=== PATIENT | male | born 1940 | race Caucasian/White ===

== ENCOUNTER 2021-04-18 09:28 | Inpatient (IN) ==
[2021-04-18] MEDS ORDERED: 0.9 % SODIUM CHLORIDE 1,000 ML IV ONE ×2 (09:52→13:49)
--- NOTE | 2021-04-18 09:56 | Emergency Department Note ---
HPI General Chief complaint: Weakness Stated complaint: Weakness Time Seen by Provider: 04/18/21 09:43 Source: family Mode of arrival: wheelchair Limitations: physical limitation History of Present Illness HPI Narrative: Narrative: 80 yo M w/ h/o DM2, CHF, HTN, colostomy for colon CA (3 y ago, apparently in remission) p/w generalized weakness. Per his here w/ him, he has had increased fatigue chronically, spending most of the day sleeping. He has seen his PCP about this several times w/o any clear etiology discovered. Over the past week however he has become increasingly weak to the point that he cannot ambulate on his own and he has been taking much less PO intake, on a few tablespoons of food over the past few days. He has had some nausea w/o diarrhea. His ostomy output appears unchanged and his reports no issues w/ urination. He o/w has no F/C, cough, SOB, CP, abd pain, or other Sx. Review of Systems ROS ROS Narrative: Narrative: Limitations: ROS unobtainable due to patients medical condition [facility] Narrative Patient History Narrative: Narrative: Medical/Surgical/Family History All Active Problems (Updated 04/18/21 @ 15:46 by Piter Carrasco MD) Acute renal failure (Acute) Dehydration (Acute) Metabolic acidosis (Acute) Acute renal failure with acute tubular necrosis superimposed on stage 3a chronic kidney disease (Acute) Social History Smoking Status: Never smoker Exam Narrative Narrative: Narrative: General Limitations: physical limitation General appearance: Present alert, in no apparent distress and other Head Head: Present atraumatic and normocephalic ENT ENT: Present normal oropharynx and mucous membranes dry Chest Chest: Present normal inspection and symmetric chest wall rise Respiratory Respiratory: Present normal lung sounds bilaterally; Absent accessory muscle use or decreased breath sounds Cardiovascular Cardiovascular: Present regular rate, normal rhythm, +S1, +S2 and other (2+ B/L radial pulses); Absent systolic murmur or diastolic murmur Adbominal Abdominal: Present soft, normal bowel sounds and other (ostomy in place, normal output in bag); Absent distention or tenderness Extremities Extremities: Absent pedal edema Neurological Neurological: Present alert and oriented X3 Psychiatric Psychiatric: Present normal affect Skin Skin: Present warm (WNL) and dry Course Vital Signs Vital signs: Vital Signs Temperature 97.4 F 04/18/21 09:29 Pulse Rate 76 04/18/21 09:29 Respiratory Rate 16 04/18/21 09:29 Blood Pressure 144/71 04/18/21 09:29 Pulse Oximetry (%) 99 04/18/21 09:29 Temperature 97.4 F 04/18/21 09:34 Pulse Rate 78 04/18/21 15:46 Respiratory Rate 16 04/18/21 13:07 Blood Pressure 129/62 04/18/21 15:46 Pulse Oximetry (%) 97 04/18/21 15:46 MDM MDM Narrative Medical decision making narrative: Narrative: 80 yo M w/ h/o DM2, CHF, HTN, colostomy for colon CA (3 y ago, apparently in remission) p/w generalized weakness. DDX - Infectious process, dehydration, metabolic/electrolyte d/o, neoplastic process, anemia, endocrine d/o, medication/toxin effect Pt presents clinically stable, w/ no threat to ABCs and no evidence of CVA on exam. CXR and UA show no evidence of infection and clinically conditions such as meningitis/encephalitis are unlikely. He is clinically dehydrated and while proceeding w/ W/U I started him on IVF. His CBC showed no anemia. CMP showed normal electrolytes (including K+), no hypoglycemia, however he had renal ravi lure w/ BUN 200 and Cr 5. This was the likely source of his weakness. I did not see evidence of hypothyroidism. Neoplastic process was possible but could be worked up further outside of the ED. I d/w him and his regarding his renal failure. I also d/w Sisi Daigle, pts POA who is coming in from [facility]. Dr Suarez - unclear prognosis. May be ESRD, but may be able to reverse some of the damage. He reviewed pts records at [facility] and found that he had been at [facility] for a similar issue w/ BUN 97 and Cr [address] referred pt [address] Suarez himself. But he has not yet seen the pt. At this point he feels that IVF should improve pts renal status. Emergency dialysis is not indicated at this point. Pt could be admitted here for [id number] 100/hr and would be availabe for consult if the hospitalist wishes. Pt was accepted by the hospitalist. Lab Data Result diagrams: 04/18/21 10:03 04/18/21 10:03 Labs: Lab Results 04/18/21 04/18/21 04/18/21 Range/Units 10:03 10:03 10:50 WBC 7.2 (4.5-11.0) K/mcL RBC 4.39 L (4.63-6.08) M/mcL Hgb 13.2 L (13.7-17.5) g/dL Hct 39.8 L (40.1-51.0) % MCV 90.7 (80.0-100.0) fL MCH 30.1 (26.0-34.0) pg MCHC 33.2 (31.0-36.0) g/dL RDW 14.4 (11.5-14.5) % Plt Count 121 L (140-440) K/mcL MPV 11.6 H (7.4-10.4) fL Neut % (Auto) 78.5 H (38.0-78.0) % Lymph % (Auto) 12.6 L (15.5-49.0) % [place] % (Auto) 6.6 (1.0-12.0) % Eos % (Auto) 1.7 (0.0-7.0) % Baso % (Auto) 0.6 (0.0-2.0) % Lymph # (Auto) 0.90 L (1.50-4.80) K/mcL [place] # (Auto) 0.47 (0.10-0.90) K/mcL Eos # (Auto) 0.12 (0.00-0.70) K/mcL Baso # (Auto) 0.04 (0.00-0.30) K/mcL Absolute Neutrophils 5.64 (1.80-8.00) K/mcL VBG Lactic Acid 0.9 (0.5-2.0) mmol/L Sodium 136 (133-145) mmol/L Potassium 5.1 (3.3-5.1) mmol/L Chloride 102 (96-108) mmol/L Carbon Dioxide 15 L (22-30) mmol/L Anion Gap 19.0 H (8.0-16.0) BUN 206 H* (8-23) mg/dL Creatinine 5.2 H* (0.7-1.2) mg/dL GFR Calculation 10 Glucose 168 H (70-105) mg/dL Calcium 9.1 (8.6-10.4) mg/dL Total Bilirubin 0.4 (0.1-1.0) mg/dL AST 12 (<40) U/L ALT 9 (<40) U/L Alkaline Phosphatase 89 (39-117) U/L Total Protein 8.0 (5.9-8.4) gm/dL Albumin 3.9 (3.2-5.2) gm/dL Globulin 4.1 H (2.2-3.7) gm/dL Albumin/Globulin Ratio 1.0 (1.0-2.3) TSH 2.55 (0.27-5.01) uIU/mL Thyroxine (T4) 3.8 L (5.0-12.0) ug/dl Urine Color Yellow Urine Appearance Clear (Clear) Urine pH 5.0 (5.0-9.0) Ur Specific [place] 1.015 (1.000-1.035) Urine Protein Negative (Negative) mg/dL Urine Glucose (UA) Negative (Negative) mg/dL Urine Ketones Negative (Negative) mg/dL Urine Occult Blood Trace-lysed A (Negative) perla/mcL Urine Nitrate Negative (Negative) Urine Bilirubin Negative (Negative) mg/dL Urine Urobilinogen Normal mg/dL Ur Leukocyte Esterase Negative (Negative) /uL Urine RBC < 1 (0-3) /hpf Urine WBC 1 (0-4) /hpf Ur Squamous Epith Cells < 1 (0-4) /hpf Urine Bacteria None (0) /hpf Hyaline Casts 13 H (0-2) /lph Urine Mucus Few A (None) /hpf Ur Culture Indicated? No ED POC Tests ED POC Tests: ELVIS - Influenza A Negative ELVIS - Influenza B Negative ELVIS - SARS Antigen Negative EKG Data EKG #1: EKG attestation: Yes I reviewed and interpreted this EKG. and Yes There are no EKG findings of acute coronary syndrome EKG results narrative: Sinus rate of 69 IN 244, QRS 160, QT 435, QTc 466 No STEMI RAD No previous for comparison Discharge Plan Patient/Caregiver Discharge Instructions Pt seen by [facility]/PA only: No Clinical Impression: Acute renal failure, Dehydration Patient Disposition: Xfer As Inpt ([facility]) Condition: Fair Follow up with: Devon Lemos DO [Primary Care Provider] -
--- NOTE | 2021-04-18 10:13 | XRay Report ---
INDICATION: chest pain TECHNIQUE: AP portable semiupright chest x-ray COMPARISON: None FINDINGS: Lungs:Lungs are negative. No focal pulmonary parenchymal infiltrate or mass Heart, vascular:No significant cardiomegaly. Pulmonary vascularity is normal. No pulmonary edema or pulmonary congestion Mediastinum, claritza:No mediastinal widening. No hilar mass Pleura:No pleural fluid. No pleural-based mass or calcification Skeletal:Negative. IMPRESSION: Negative AP chest x-ray Interpreted and Authenticated by: Trent Otto 04/18/21
[2021-04-18 11:17] LABS: Basophils # (Auto) 0.04 K/mcL (0.00-0.30); Basophils % (Auto) 0.6 % (0.0-2.0); Eosinophils # (Auto) 0.12 K/mcL (0.00-0.70); Eosinophils % (Auto) 1.7 % (0.0-7.0); Hematocrit 39.8 % (40.1-51.0); Hemoglobin 13.2 g/dL (13.7-17.5); Lymphocytes % (Auto) 12.6 % (15.5-49.0); Mean Cell Volume 90.7 fL (80.0-100.0); Mean Corpuscular HGB Conc 33.2 g/dL (31.0-36.0); Mean Platelet Volume 11.6 fL (7.4-10.4); Monocytes # (Auto) 0.47 K/mcL (0.10-0.90); Monocytes % (Auto) 6.6 % (1.0-12.0); Neutrophils % (Auto) 78.5 % (38.0-78.0); Platelet Count 121 K/mcL (140-440); RBC 4.39 M/mcL (4.63-6.08); Red Cell Distribution Width 14.4 % (11.5-14.5); WBC 7.2 K/mcL (4.5-11.0)
[2021-04-18 11:25] LABS: T4 (Thyroxine) 3.8 ug/dl (5.0-12.0); Thyroid Stimulating Hormone 2.55 uIU/mL (0.27-5.01)
[2021-04-18 11:39] LABS: ALT/SGPT 9 U/L (<40); AST/SGOT 12 U/L (<40); Albumin 3.9 gm/dL (3.2-5.2); Alkaline Phosphatase 89 U/L (39-117); Bilirubin,Total 0.4 mg/dL (0.1-1.0); Blood Urea Nitrogen 206 mg/dL (8-23); Calcium 9.1 mg/dL (8.6-10.4); Carbon Dioxide 15 mmol/L (22-30); Chloride 102 mmol/L (96-108); Globulin 4.1 gm/dL (2.2-3.7); Glomerular Filtration Rate 10; Glucose 168 mg/dL (70-105)
[2021-04-18 11:57] LABS: Appearance,Urine Clear (Clear); Bilirubin,Urine Negative (Negative); Color,Urine Yellow; Culture Indicated,Urine No; Glucose,Urine (UA) Negative (Negative); Ketones,Urine Negative (Negative); Leukocyte Esterase,Urine Negative /uL (Negative); Mucus,Urine FEW /hpf; Nitrate,Urine Negative (Negative); Protein,Urine Negative (Negative); Specific Gravity,Urine 1.015 (1.000-1.035); Urine Blood Trace-lysed ery/mcL (Negative); Urine Hyaline Cast 13 /lph (0-2); Urine RBC < 1 /hpf (0-3); Urine Squamous Epithelial Cell < 1 /hpf (0-4); Urine WBC 1 /hpf (0-4); Urobilinogen,Urine Normal
[2021-04-18] MEDS ORDERED: SODIUM BICARBONATE VIAL 50 MEQ in DEXTROSE 5% IN WATER 1,000 ML IV SCH (14:15)
--- NOTE | 2021-04-18 14:53 | Nephrology Consult Note ---
HPI Data of Consult Patient: new to practice Consult date: 04/18/21 Requesting physician: Piter Carrasco Primary Care Provider: Devon Lemos DO Consult Narrative Patient Information: Note initiated : 04/18/21 at 2:50 pm Patient: Will Pate 80 y/o M admitted on for weakness. Patient is hard of hearing. His at bedside helped with history. Will Pate is an 80-year-old male with hypertension, diabetes mellitus type 2, chronic kidney disease stage 3a, history of colon cancer s/p resection with colostomy presented to [facility] ED for weakness on 04/18/21. His work up is significant for acute kidney injury. He was recently seen at [facility] ED on 03/20/21 and 03/21/21 for acute kidney injury which responded to IV fluids. He followed up with his PCP. Weakness developed gradually. He declines difficulty of urination. Baseline serum creatinine: 1.0-1.5 (eGFR 43-71) in 2020, 2.0 on 03/20/21, 1.3 on 03/21/21. Nephrology consultation was requested for acute kidney injury. Chief complaint: Weakness Reason for consult: Acute kidney injury cc:: CC: Constitutional Constitutional: Present anorexia and weakness EENT Eyes: Absent blurry vision Nose, mouth and throat: Absent nasal congestion or sore throat Cardiovascular Cardiovascular: Absent chest pain or palpatations Respiratory Respiratory: Absent dyspnea or wheezing Gastrointestinal Gastrointestinal: Absent abdominal pain or nausea Genitourinary Additional comments: No hematuria, dysuria Integumentary Integumentary: Absent rash or wounds Neurological Neurological: Present weakness; Absent confusion Psychiatric Psychiatric: Absent anxiety or panic attacks Hematologic/Lymphatic Hematologic/Lymphatic: Absent easy bleeding Allergic/Immunologic Allergic/Immunologic: Absent tongue swelling or uticaria PFSH PFSH All Active Problems (Updated 04/18/21 @ 14:51 by Deb Suarez MD) Metabolic acidosis (Acute) Acute renal failure with acute tubular necrosis superimposed on stage 3a chronic kidney disease (Acute) Physical Examination Vital Signs Vital signs: Temp Pulse Resp BP Pulse Ox 97.4 F 80 16 125/56 97 04/18/21 09:34 04/18/21 14:16 04/18/21 13:07 04/18/21 14:16 04/18/21 14:16 General Appearance General appearance: well-developed, well-nourished and fatigue EENT EENT: mucous membranes dry Neck Neck: no JVD Respiratory Respiratory: clear Cardiovascular Cardiology: regular rate and regular rhythm Gastrointestinal Gastrointestinal: no tenderness and distended Integumentary Integumentary: warm and dry Neurologic Neurologic: alert and oriented x3 Musculoskeletal Musculoskeletal: no deformities Psychiatric Psychiatric: mood/affect appropriate and cooperative Results Lab Results Result Diagrams: 04/18/21 10:03 04/18/21 10:03 Lab results: Most recent lab results Calcium 9.1 mg/dL (8.6-10.4) 04/18/21 10:03 A/P Assessment and plan (1) Acute renal failure with acute tubular necrosis superimposed on stage 3a chronic kidney disease: Assessment and plan: Will Pate is an 80-year-old male with hypertension, diabetes mellitus type 2, chronic kidney disease stage 3a, history of colon cancer s/p resection with colostomy presented to [facility] ED for weakness on 04/18/21. His work up is significant for acute kidney injury. He was recently seen at [facility] ED on 03/20/21 and 03/21/21 for acute kidney injury which responded to IV fluids. He was recommended to see a kidney specialist. Baseline serum creatinine: 1.0-1.5 (eGFR 43-71) in 2020, 2.0 on 03/20/21, 1.3 on 03/21/21. Nephrology consultation was requested for acute kidney injury. Acute kidney injury, likely acute tubular necrosis associated with dehydration on chronic kidney disease stage 3a with initial metabolic acidosis, present on arrival. There is no recent history of IV contrast administration or NSAID use. Intravascular volume depletion likely with history and colostomy and being treated with adequate IV fluid resuscitation. The patient has been on Lisinopril, Metformin, Furosemide and Spironolactone. Metformin intoxication is considered. Diuretics are high risk with colostomy and should be avoided. Previous work up: Urinalysis on 03/21/21: Yellow, Clear, pH 6.0, SG 1.015, protein 30, blood 0.03, leukocyte esterase negative. Urine random microalbumin/creatinine on 06/19/18: 78.5 mg/g creatinine. CT Abdomen and Pelvis with contrast on 11/28/2017: Benign appearing cortical and partially exophytic cysts in the kidneys. Urinary bladder is decompressed. Work up: Urinalysis on 04/18/21: Yellow, Clear, pH 5.0, SG 1.015, protein negative, blood trace-lysed, leukocyte esterase negative, urine WBC. Progress: Serum creatinine increased from 1.0-1.5 at baseline to 5.2 in the past one month. Baseline serum creatinine: 1.0-1.5 (eGFR 43-71) in 2020, 2.0 on 03/20/21, 1.3 on 03/21/21. Urine output: Small amount of yellow clear urine in the urinal. Metabolic acidosis. Metformin intoxication is considered. No fluid overload. No uremic symptoms. Recommendations/Plan: Continue Sodium Bicarbonate 150 mEq in 1L D5W at 100 ml/hour for metabolic acidosis. Anticipate hypokalemia with correction of metabolic acidosis. No urgent acute hemodialysis need. Work up with renal US, serum free kappa/lambda light chain ratio, HBsAg, anti- HCV Ab, C3, C4, ANCA screen, anti-GBM Ab ordered. Avoid NSAIDs, nephrotoxic medications and IV contrast. Monitor BMP and urine output. Status: Acute (2) Metabolic acidosis: Status: Acute Time Spent With Patient Time: Total time spent is greater than 50% in coordination of care (as documented) at patient's floor/unit and/or counseling patient:
[2021-04-18] MEDS ORDERED: SODIUM BICARBONATE 50 MEQ/50 ML VIAL ONE ×2 (15:08→15:38)
[2021-04-18] MEDS: SODIUM BICARBONATE VIAL 150 MEQ in DEXTROSE 5% IN WATER 850 ML IV SCH (15:36)
[2021-04-18 16:58] LABS: Complement C3 154.3 mg/dL (90.0-180.0)
--- NOTE | 2021-04-18 17:11 | Internal Med History&Physical ---
HPI History of Present Illness Patient information: Note initiated : 04/18/21 at 4:58 pm Service Date, if different from initiated Date: [] Patient: Will Pate 80 y/o M admitted on for Weakness. Chief Complaint: [] Chief complaint: generalized weakness History of present illness: Mr. Pate is a 80 year old male with a history of hypertension, type 2 diabetes mellitus, chronic kidney disease stage III a, congestive heart failure, colon cancer about 3 years ago status post resection and colostomy placement presented to the emergency department for generalized weakness, fatigue, decreased appetite. This is been progressively worsening for several weeks, the patient was seen at [facility] emergency department in February 2021 and found to have acute kidney injury that responded to IV fluids. Patient was seen by his primary care provider for the aforementioned complaints, no etiology has been found for the patient's symptoms. In the emergency department at [facility] the patient was found to have an acute kidney injury and anion gap metabolic acidosis, BUN was elevated at 206. Additionally, the patient had a mild normocytic anemia, thrombocytopenia with platelets 121, increased globulin of 4.1. TSH was normal. Urinalysis was fairly normal, no evidence of hematuria or pyuria. Chest AP x-ray was interpreted as negative by radiology. The patient was admitted for acute kidney injury work-up and management. Nephrology was consulted in the emergency department for acute kidney injury. Review of systems Constitutional: Positive for fatigue, decreased appetite, generalized weakness. Eyes: no vision changes or pain Cardiovascular: no chest pain, no palpitations Respiratory: no cough or dyspnea Gastrointestinal: no abdominal pain, no nausea, vomiting, or diarrhea Genitourinary: no dysuria or difficulty voiding Musculoskeletal: no arthralgia or myalgia Integumentary: no skin lesion or wound Neurological: no focal weakness or numbness Psychiatric: no anxiety or depression Physical exam Head: Atraumatic, normal inspection. Eyes: normal appearance, no scleral icterus. Neck: full ROM Respiratory: no respiratory distress. Cardiovascular: normal rate and rhythm, S1, S2. GI/Abdominal: soft, nontender, no guarding. Extremities: full range of motion, nontender. Neurological: CN II-XII intact, intact motor, intact sensation. Psychiatric: normal mood. Skin: warm, normal color PFSH PFSH All Active Problems (Updated 04/18/21 @ 15:46 by Piter Carrasco MD) Acute renal failure (Acute) Dehydration (Acute) Metabolic acidosis (Acute) Acute renal failure with acute tubular necrosis superimposed on stage 3a chronic kidney disease (Acute) EXAM Constitutional Vitals: Temp Pulse Resp BP Pulse Ox 97.4 F 86 16 121/49 97 04/18/21 09:34 04/18/21 16:31 04/18/21 13:07 04/18/21 16:31 04/18/21 16:31 DATA Data Completed and Pending Labs: Labs from last 24 hours 04/18/21 04/18/21 04/18/21 15:37 15:37 15:37 WBC RBC Hgb Hct MCV MCH MCHC RDW Plt Count MPV Neut % (Auto) Lymph % (Auto) [place] % (Auto) Eos % (Auto) Baso % (Auto) Lymph # (Auto) [place] # (Auto) Eos # (Auto) Baso # (Auto) Absolute Neutrophils VBG Lactic Acid Sodium Potassium Chloride Carbon Dioxide Anion Gap BUN Creatinine GFR Calculation Glucose Calcium Total Bilirubin AST ALT Alkaline Phosphatase Total Protein Albumin Globulin Albumin/Globulin Ratio TSH Thyroxine (T4) Urine Color Urine Appearance Urine pH Ur Specific Gordon Urine Protein Urine Glucose (UA) Urine Ketones Urine Occult Blood Urine Nitrate Urine Bilirubin Urine Urobilinogen Ur Leukocyte Esterase Urine RBC Urine WBC Ur Squamous Epith Cells Urine Bacteria Hyaline Casts Urine Mucus Ur Culture Indicated? ANCA Screen Pending Anti-Proteinase 3 Pending Myeloperoxidase Ab Pending Glomerular Base Mem IgG Pending Complement C3 154.3 Complement C4 36.6 Free Hailey LC, Quant Pending Free Lambda LC, Quant Pending Free [place]/Lambda Ratio Pending Hep Bs Antigen Pending Hepatitis C Antibody Pending HCV RNA Quant (PCR) Pending HCV RNA PCR log IUs/ml Pending 04/18/21 04/18/21 04/18/21 10:50 10:03 10:03 WBC 7.2 RBC 4.39 L Hgb 13.2 L Hct 39.8 L MCV 90.7 MCH 30.1 MCHC 33.2 RDW 14.4 Plt Count 121 L MPV 11.6 H Neut % (Auto) 78.5 H Lymph % (Auto) 12.6 L [place] % (Auto) 6.6 Eos % (Auto) 1.7 Baso % (Auto) 0.6 Lymph # (Auto) 0.90 L [place] # (Auto) 0.47 Eos # (Auto) 0.12 Baso # (Auto) 0.04 Absolute Neutrophils 5.64 VBG Lactic Acid 0.9 Sodium 136 Potassium 5.1 Chloride 102 Carbon Dioxide 15 L Anion Gap 19.0 H BUN 206 H* Creatinine 5.2 H* GFR Calculation 10 Glucose 168 H Calcium 9.1 Total Bilirubin 0.4 AST 12 ALT 9 Alkaline Phosphatase 89 Total Protein 8.0 Albumin 3.9 Globulin 4.1 H Albumin/Globulin Ratio 1.0 TSH 2.55 Thyroxine (T4) 3.8 L Urine Color Yellow Urine Appearance Clear Urine pH 5.0 Ur Specific [place] 1.015 Urine Protein Negative Urine Glucose (UA) Negative Urine Ketones Negative Urine Occult Blood Trace-lysed A Urine Nitrate Negative Urine Bilirubin Negative Urine Urobilinogen Normal Ur Leukocyte Esterase Negative Urine RBC < 1 Urine WBC 1 Ur Squamous Epith Cells < 1 Urine Bacteria None Hyaline Casts 13 H Urine Mucus Few A Ur Culture Indicated? No ANCA Screen Anti-Proteinase 3 Myeloperoxidase Ab Glomerular Base Mem IgG Complement C3 Complement C4 Free [place] LC, Quant Free Lambda LC, Quant Free [place]/Lambda Ratio Hep Bs Antigen Hepatitis C Antibody HCV RNA Quant (PCR) HCV RNA PCR log IUs/ml A/P Narrative A/P Narrative: Assessment: 80 year old male with a history of hypertension, type 2 diabetes mellitus, chronic kidney disease stage IIIa, colon cancer about 3 years ago status post resection and colostomy placement presented to the emergency department for generalized weakness, fatigue, decreased appetite and found to have acute on chronic kidney disease injury. #Acute on chronic kidney disease stage IIIa injury #Anion gap metabolic acidosis #Generalized weakness and fatigue #Type 2 diabetes mellitus #Hypertension #Mild normocytic anemia #Thrombocytopenia #Probable BPH #History of colon cancer status post resection -Reportedly in remission #Status post colostomy for colon cancer Plan -IV fluid with sodium bicarbonate. -Monitor renal function, urine output. -ARIAN work-up to include renal ultrasound, serum free light chains, hepatitis B and C screening, C3, C 4, ANCA screen, anti-GBM antibody. -Nephrology consulted. -Home medication reconciliation. -SSI-medium for now -Renal diabetic diet. -PT consult. -Bladder scan Qshift. -DVT prophylaxis: Heparin SQ -CODE STATUS: DNR/DNI -Disposition: TBD Time Spent With Patient Time: Total time spent is greater than 50% in coordination of care (as documented) at patient's floor/unit and/or counseling patient:
--- NOTE | 2021-04-18 18:13 | Ultrasound Report ---
INDICATION: acute kidney injury TECHNIQUE: Grayscale and color flow Doppler spectral imaging. COMPARISON: None. FINDINGS: Right kidney: Right kidney [id number] x 6.2 x 6.3 cm. There is no hydronephrosis. No solid right renal mass. Renal cortex is echogenic consistent with medical renal disease. No detectable calculi. There is a 2.0 cm right upper pole cyst. There is trace right perinephric fluid Left kidney: Left kidney .2 x 5.4 x 5.6 cm. There is no hydronephrosis. No solid left renal mass. Renal cortex is echogenic consistent with medical renal disease. No detectable calculi. There are 2 left renal cysts. Largest cyst is upper pole and measures 1.9 cm Bladder: Prevoid bladder [id number] mL. Patient was unable to void. No bladder calculi. No detectable mass. Bilateral ureteral jets visualized. IMPRESSION: 1. Echogenic renal cortex bilaterally. Findings consistent with medical renal disease 2. No hydronephrosis Interpreted and Authenticated by: Trent Otto 04/18/21
[2021-04-18] MEDS ORDERED: DEXTROSE 50% 50 ML VIAL IV PRN (18:33)
[2021-04-18] MEDS ORDERED: DEXTROSE 31 GM ORAL.SUSP PO PRN (18:33)
[2021-04-18] MEDS ORDERED: ACETAMINOPHEN 325 MG TABLET PO PRN (18:33)
[2021-04-18] MEDS ORDERED: ONDANSETRON 4 MG/2 ML VIAL IV PRN (18:33)
[2021-04-18] MEDS: INSULIN LISPRO 1 UNIT/0.01 ML UNIT SQ SCH ×2 (21:07→22:53)
[2021-04-18] MEDS: SENNOSIDES 1 TABLET PO SCH (23:03)
[2021-04-18] MEDS: HEPARIN 5,000 UNIT/ML VIAL SQ SCH (23:04)
[2021-04-18] MEDS: INSULIN GLARGINE, HUMAN 1 UNIT/0.01 ML SQ SCH (23:04)
[2021-04-18] MEDS: 0.9 % SODIUM CHLORIDE 10 ML SYRINGE IV SCH (23:05)
[2021-04-18] MEDS ORDERED: ALPRAZolam 0.5 MG TABLET ONE (23:06)
[2021-04-18] MEDS ORDERED: INSULIN GLARGINE, HUMAN 1 UNIT/0.01 ML SQ ONE (23:07)
[2021-04-19] MEDS ORDERED: SODIUM BICARBONATE 50 MEQ/50 ML VIAL ONE (03:44)
[2021-04-19] MEDS: SODIUM BICARBONATE VIAL 150 MEQ in DEXTROSE 5% IN WATER 850 ML IV SCH (03:48)
[2021-04-19] MEDS: 0.9 % SODIUM CHLORIDE 10 ML SYRINGE IV SCH ×3 (04:55→20:37)
[2021-04-19 06:53] LABS: Basophils # (Auto) 0.03 K/mcL (0.00-0.30); Basophils % (Auto) 0.4 % (0.0-2.0); Eosinophils # (Auto) 0.21 K/mcL (0.00-0.70); Eosinophils % (Auto) 2.8 % (0.0-7.0); Hematocrit 34.4 % (40.1-51.0); Hemoglobin 11.7 g/dL (13.7-17.5); Lymphocytes # (Auto) 1.42 K/mcL (1.50-4.80); Lymphocytes % (Auto) 18.8 % (15.5-49.0); Mean Cell Volume 88.4 fL (80.0-100.0); Monocytes % (Auto) 7.9 % (1.0-12.0); Neutrophils % (Auto) 70.1 % (38.0-78.0); Platelet Count 113 K/mcL (140-440); RBC 3.89 M/mcL (4.63-6.08); Red Cell Distribution Width 14.2 % (11.5-14.5); WBC 7.6 K/mcL (4.5-11.0)
[2021-04-19 07:24] LABS: ALT/SGPT 8 U/L (<40); AST/SGOT 14 U/L (<40); Albumin 3.2 gm/dL (3.2-5.2); Albumin/Globulin Ratio 0.9 (1.0-2.3); Alkaline Phosphatase 74 U/L (39-117); Bilirubin,Direct < 0.2 mg/dL (0-0.3); Bilirubin,Total 0.4 mg/dL (0.1-1.0); Blood Urea Nitrogen 164 mg/dL (8-23); Calcium 8.6 mg/dL (8.6-10.4); Carbon Dioxide 22 mmol/L (22-30); Chloride 108 mmol/L (96-108); Globulin 3.5 gm/dL (2.2-3.7); Glomerular Filtration Rate 14; Glucose 99 mg/dL (70-105); Lactate Dehydrogenase 204 U/L (135-225); Phosphorous 6.1 mg/dL (2.5-4.5); Triglycerides 116 mg/dL (<150); Uric Acid 10.6 mg/dL (2.5-8.0)
--- NOTE | 2021-04-19 07:30 | Nephrology Progress Note ---
SUBJECTIVE Subjective Patient information: Note initiated : 04/19/21 at 7:29 am Patient: Will Pate 80 y/o M admitted on 04/18/21 for Weakness. Chief Complaint: Weakness Pertinent ROS: Weakness Hard of hearing No shortness of breath Constitutional Vitals: Vital Signs Temp Pulse Resp BP Pulse Ox 97.8 F 65 16 116/64 96 04/19/21 07:27 04/19/21 07:27 04/19/21 07:27 04/19/21 07:27 04/19/21 07:27 Period Temp Pulse Resp BP Sys/Montesinos Pulse Ox Last 24 Hr 97.1 F-98.2 F 60-88 16-18 104-157/49-90 92-99 Intake and Output 04/18/21 04/19/21 04/19/21 21:59 05:59 13:59 Intake Total 231 1437 Output Total 150 402 500 Balance 81 1035 -500 Weight 186 lb Intake & Output: Intake & Output 04/18/21 04/19/21 04/19/21 21:59 05:59 13:59 Intake Total 231 1437 Output Total 150 402 500 Balance 81 1035 -500 Weight 186 lb Intake: IV 231 1437 Sodium Bicarbonate Vial 50 Meq 231 1437 In Dextrose 5% in Water 1,000 ml @ 100 mls/hr IV Q21H [facility] Rx# :[id number] Output: Void Amount 150 400 300 # of times incontinent of urine 2 Stool 200 Other: Urine Appearance Clear Clear Clear Urine Color Pale Bright Yellow Bright Yellow Stool Consistency Soft Liquid Loose General appearance: cooperative and no acute distress Head Head exam: Present normal inspection Eye Eye exam: Present normal appearance ENT ENT exam: Present mucous membranes moist Respiratory Respiratory exam: Absent respiratory distress Cardiovascular Cardiovascular exam: Present normal rate and rhythm GI/Abdominal GI/Abdominal exam: Present soft; Absent tenderness Extremities Exam Extremities exam: Absent joint swelling or pedal edema Neurological Exam Neurological exam: Present alert and oriented X3 Psychiatric Psychiatric exam: Present normal affect and normal mood Skin Skin exam: Present warm; Absent rash A/P Assessment and plan (1) Acute renal failure with acute tubular necrosis superimposed on stage 3a chronic kidney disease: Assessment and plan: Will Pate is an 80-year-old male with hypertension, diabetes mellitus type 2, chronic kidney disease stage 3a, history of colon cancer s/p resection with colostomy presented to [facility] ED for weakness on 2/19/22. His work up is significant for acute kidney injury. He was recently seen at [facility] ED on 03/20/21 and 03/21/21 for acute kidney injury which responded to IV fluids. He was recommended to see a kidney specialist. Baseline serum creatinine: 1.0-1.5 (eGFR 43-71) in 2020, 2.0 on 03/20/21, 1.3 on 03/21/21. Nephrology consultation was requested for acute kidney injury. Acute kidney injury, likely acute tubular necrosis associated with dehydration on chronic kidney disease stage 3a with initial metabolic acidosis, present on arrival. There is no recent history of IV contrast administration or NSAID use. Intravascular volume depletion likely with history and colostomy and being treated with adequate IV fluid resuscitation. The patient has been on Lisinopril, Metformin, Furosemide and Spironolactone. Metformin intoxication is considered. Diuretics are high risk with colostomy and should be avoided. Previous work up: Urinalysis on 03/21/21: Yellow, Clear, pH 6.0, SG 1.015, protein 30, blood 0.03, leukocyte esterase negative. Urine random microalbumin/creatinine on 06/19/18: 78.5 mg/g creatinine. CT Abdomen and Pelvis with contrast on 11/28/2017: Benign appearing cortical and partially exophytic cysts in the kidneys. Urinary bladder is decompressed. Work up: Urinalysis on 04/18/21: Yellow, Clear, pH 5.0, SG 1.015, protein negative, blood trace-lysed, leukocyte esterase negative, urine WBC. Renal US on 04/18/21: Echogenic renal cortex bilaterally. Findings consistent with medical renal disease. No hydronephrosis. Labs on 04/18/21: C3 154.3, C4 36.6. Serum free kappa/lambda light chain ratio, HBsAg, anti-HCV Ab, ANCA screen, anti-GBM Ab pending. Treatment: Sodium Bicarbonate 150 mEq in 1L D5W at 100 ml/hour for metabolic acidosis. Progress: Serum creatinine decreased from 5.2 to 3.7 in the past 18 hours. Baseline serum creatinine: 1.0-1.5 (eGFR 43-71) in 2020, 2.0 on 03/20/21, 1.3 on 03/21/21. Urine output: 850 ml reported in the past 18 hours. Metabolic acidosis, resolved. Fluid overload. I/O: + 1.5 L Weight: +11 lb No uremic symptoms. Recommendations/Plan: Sodium Bicarbonate 150 mEq in 1L D5W at 100 ml/hour discontinued. Hold Lisinopril, Metformin, Furosemide and Spironolactone. Anticipate no acute hemodialysis need. Avoid NSAIDs, nephrotoxic medications and IV contrast. Monitor BMP and urine output. Status: Acute (2) Metabolic acidosis: Status: Acute Time Spent With Patient Time: Total time spent is greater than 50% in coordination of care (as documented) at patient's floor/unit and/or counseling patient:
[2021-04-19] MEDS ORDERED: ALPRAZolam 0.5 MG TABLET PO PRN (07:32)
[2021-04-19] MEDS: INSULIN LISPRO 1 UNIT/0.01 ML UNIT SQ SCH ×4 (07:36→20:29)
[2021-04-19] MEDS: SENNOSIDES 1 TABLET PO SCH ×2 (07:41→20:35)
[2021-04-19] MEDS: DONEPEZIL 10 MG TABLET PO SCH (07:42)
[2021-04-19] MEDS: SERTRALINE 100 MG TABLET PO SCH (07:42)
[2021-04-19] MEDS: OLANZapine 5 MG TABLET PO SCH (07:43)
[2021-04-19] MEDS: HEPARIN 5,000 UNIT/ML VIAL SQ SCH ×2 (07:44→20:28)
[2021-04-19] MEDS: ATORVASTATIN 20 MG TABLET PO SCH ×2 (07:46→20:28)
--- NOTE | 2021-04-19 14:58 | Internal Med Progress Note ---
SUBJECTIVE Subjective Patient information: Note initiated : 04/19/21 at 2:54 pm Service Date, if different from initiated Date: [] Patient: Will Pate 80 y/o M admitted on 04/18/21 for Weakness. Chief Complaint: [] Principal diagnosis: Acute kidney injury Interval history: Mr. Pate is a 80 year old male with a history of hypertension, type 2 diabetes mellitus, chronic kidney disease stage III a, congestive heart failure, colon cancer about 3 years ago status post resection and colostomy placement presented to the emergency department for generalized weakness, fatigue, decreased appetite. This is been progressively worsening for several weeks, the patient was seen at [facility] emergency department in February 2021 and found to have acute kidney injury that responded to IV fluids. Patient was seen by his primary care provider for the aforementioned complaints, no etiology has been found for the patient's symptoms. In the emergency department at [facility] the patient was found to have an acute kidney injury and anion gap metabolic acidosis, BUN was elevated at 206. Additionally, the patient had a mild normocytic anemia, thrombocytopenia with platelets 121, increased globulin of 4.1. TSH was normal. Urinalysis was fairly normal, no evidence of hematuria or pyuria. Chest AP x-ray was interpreted as negative by radiology. The patient was admitted for acute kidney injury work-up and management. Nephrology was consulted in the emergency department for acute kidney injury. 04/19 Renal function improving, metabolic acidosis resolved, nephrology discontinued the bicarbonate IV infusion. Bilateral renal ultrasound negative for hydronephrosis and showed bilateral echogenic renal cortex consistent with medical renal disease, awaiting ARIAN workup labs. Physical exam Head: Atraumatic, normal inspection. Eyes: normal appearance, no scleral icterus. Neck: full ROM Respiratory: no respiratory distress. Cardiovascular: normal rate and rhythm, S1, S2. GI/Abdominal: soft, nontender, no guarding. Extremities: full range of motion, nontender. Neurological: CN II-XII intact, intact motor, intact sensation. Psychiatric: normal mood. Skin: warm, normal color Constitutional Vitals: Vital Signs Temp Pulse Resp BP Pulse Ox 97.4 F 67 18 129/66 96 04/19/21 11:37 04/19/21 11:37 04/19/21 11:37 04/19/21 11:37 04/19/21 11:37 Period Temp Pulse Resp BP Sys/Montesinos Pulse Ox Last 24 Hr 97.1 F-98.2 F 60-88 16-18 104-140/49-80 92-98 Intake and Output 04/19/21 04/19/21 04/19/21 05:59 13:59 21:59 Intake Total 1437 300 Output Total 402 900 Balance 1035 -600 Intake & Output: Intake & Output 04/19/21 04/19/21 04/19/21 05:59 13:59 21:59 Intake Total 1437 300 Output Total 402 900 Balance 1035 -600 Intake: IV 1437 Sodium Bicarbonate Vial 50 Meq 1437 In Dextrose 5% in Water 1,000 ml @ 100 mls/hr IV Q21H [facility] Rx# :[id number] Oral 300 Output: Void Amount 400 700 # of times incontinent of urine 2 Stool 200 Other: Meal Breakfast Percent of Meal Consumed 75% Urine Appearance Clear Clear Urine Color Bright Yellow Bright Yellow Stool Consistency Soft Liquid Loose OBJ DATA Labs CBC & Chem 7: 04/19/21 06:00 04/19/21 06:00 Labs: Abnormal Lab Results 04/19/21 04/19/21 04/18/21 06:00 06:00 10:50 RBC 3.89 L Hgb 11.7 L Hct 34.4 L Plt Count 113 L MPV 12.0 H Neut % (Auto) Lymph % (Auto) Lymph # (Auto) 1.42 L Carbon Dioxide Anion Gap BUN 164 H* Creatinine 3.7 H Glucose Uric Acid 10.6 H Phosphorus 6.1 H* Globulin Albumin/Globulin Ratio 0.9 L Thyroxine (T4) Urine Occult Blood Trace-lysed A Hyaline Casts 13 H Urine Mucus Few A 04/18/21 04/18/21 10:03 10:03 RBC 4.39 L Hgb 13.2 L Hct 39.8 L Plt Count 121 L MPV 11.6 H Neut % (Auto) 78.5 H Lymph % (Auto) 12.6 L Lymph # (Auto) 0.90 L Carbon Dioxide 15 L Anion Gap 19.0 H BUN 206 H* Creatinine 5.2 H* Glucose 168 H Uric Acid Phosphorus Globulin 4.1 H Albumin/Globulin Ratio Thyroxine (T4) 3.8 L Urine Occult Blood Hyaline Casts Urine Mucus Meds: Medications Acetaminophen (Acetaminophen 325 Mg Tablet) 650 mg PO Q6HP PRN; Protocol PRN Reason: Per Pain Protocol/Fever > 101 Alprazolam (Alprazolam 0.5 Mg Tablet) 1 mg PO HSP PRN PRN Reason: Anxiety Atorvastatin Calcium (Atorvastatin 20 Mg Tablet) 20 mg PO HS [facility] Last Admin: 04/19/21 07:46 Dose: Not Given Documented by: Dextrose (Dextrose 50% 50 Ml Vial) 0 ml IV UD PRN PRN Reason: Hypoglycemia Diagnostic Test (Pha) (Accu-Chek 1 Each Strip) 1 each FS [facility] Last Admin: 04/19/21 11:10 Dose: 1 each Documented by: Donepezil HCl (Donepezil 10 Mg Tablet) 5 mg PO QDAY [facility] Last Admin: 04/19/21 07:42 Dose: 5 mg Documented by: Glucose (Dextrose 31 Gm Oral.Susp) 15 gm PO PRN PRN PRN Reason: Hypoglycemia Heparin Sodium (Porcine) (Heparin 5,000 Unit/Ml Vial) 5,000 unit SQ Q12 [facility] Last Admin: 04/19/21 07:44 Dose: 5,000 unit Documented by: Insulin Glargine (Insulin Glargine, Human 1 Unit/0.01 Ml) 20 unit SQ [facility] Last Admin: 04/18/21 23:04 Dose: 20 units Documented by: Insulin Human Lispro (Insulin Lispro 1 Unit/0.01 Ml Unit) 0 unit SQ [facility]; Protocol Last Admin: 04/19/21 11:10 Dose: 6 units Documented by: Olanzapine (Olanzapine 5 Mg Tablet) 10 mg PO DAILY [facility] Last Admin: 04/19/21 07:43 Dose: 10 mg Documented by: Ondansetron HCl (Ondansetron 4 Mg/2 Ml Vial) 4 mg IV Q6HP PRN PRN Reason: Nausea And Vomiting Senna (Sennosides 1 Tablet) 2 tab PO BID [facility] Last Admin: 04/19/21 07:41 Dose: 2 tab Documented by: Sertraline HCl (Sertraline 100 Mg Tablet) 200 mg PO DAILY [facility] Last Admin: 04/19/21 07:42 Dose: 200 mg Documented by: Sodium Chloride (0.9 % Sodium Chloride 10 Ml Syringe) 10 ml IV Q8 [facility] Last Admin: 04/19/21 14:06 Dose: Not Given Documented by: A/P Narrative A/P Narrative: Assessment: 80 year old male with a history of hypertension, type 2 diabetes mellitus, chronic kidney disease stage IIIa, colon cancer about 3 years ago status post resection and colostomy placement presented to the emergency department for generalized weakness, fatigue, decreased appetite and found to have acute on chronic kidney disease injury. #Acute on chronic kidney disease stage IIIa injury #resolved anion gap metabolic acidosis #Generalized weakness and fatigue #Type 2 diabetes mellitus #Hypertension #Normocytic anemia #Thrombocytopenia #Probable BPH #History of colon cancer status post resection -Reportedly in remission #Status post colostomy for colon cancer #Cognitive impairment Plan -Discontinue IV sodium bicarbonate infusion. -Monitor renal function and urine output. -ARIAN work-up: serum free light chains, SPEP, UPEP, hepatitis B and C screening, C3, C 4, ANCA screen, anti-GBM antibody. -Monitor hemoglobin. -Check hemoglobin A1c. -Continue home Atorvastatin, donepezil, zyprexa, sertraline -Reduced dose Lantus HS. -SSI-medium. -Holding home hydrochlorothiazide, lisinopril, metformin, pioglitazone, high dose Lantus. -Renal diabetic diet. -Nephrology following. -PT consult. -Bladder scan Qshift. -DVT prophylaxis: Heparin SQ -CODE STATUS: DNR/DNI -Disposition: TBD Time Spent With Patient Time: Total time spent is greater than 50% in coordination of care (as documented) at patient's floor/unit and/or counseling patient: QUALITY VTE Deep Vein Thrombosis/Pulmonary Embolism Present on Admission: No
[2021-04-19 16:06] LABS: Estimated Average Glucose(eAG) 189 mg/dL; Hemoglobin A1C 8.2 % Hgb (4.0-6.0)
--- NOTE | 2021-04-19 20:12 | EKG ---
[facility] Test Date: 2021-04-18 Pat Name: Will Pate Department: ED Room: Gender: Male [employer]: LR : 1940 Requested By: Piter Carrasco Order Number: [id number] Reading MD: Pratik Titus Measurements Intervals [place] Rate: 69 P: 259 IA: 244 QRS: 260 QRSD: 160 T: 25 QT: 435 QTc: 466 Interpretive Statements Sinus or ectopic atrial rhythm RBBB Electronically Signed On 04-19-2021 20:12:22 PST by Pratik Titus /[facility]/[email or web address]/[id number]
[2021-04-19] MEDS: INSULIN GLARGINE, HUMAN 1 UNIT/0.01 ML SQ SCH (20:28)
[2021-04-20] MEDS ORDERED: OLANZapine 10 MG VIAL IM PRN ×2 (02:58→06:15)
[2021-04-20] MEDS ORDERED: OLANZapine 2.5 MG TABLET PO ONE (03:18)
[2021-04-20] MEDS ORDERED: OLANZapine 10 MG VIAL IM ONE (03:24)
[2021-04-20 06:51] LABS: Basophils # (Auto) 0.04 K/mcL (0.00-0.30); Basophils % (Auto) 0.4 % (0.0-2.0); Eosinophils # (Auto) 0.18 K/mcL (0.00-0.70); Eosinophils % (Auto) 1.6 % (0.0-7.0); Hematocrit 36.9 % (40.1-51.0); Hemoglobin 12.7 g/dL (13.7-17.5); Lymphocytes # (Auto) 2.03 K/mcL (1.50-4.80); Lymphocytes % (Auto) 17.9 % (15.5-49.0); Mean Cell Volume 87.6 fL (80.0-100.0); Mean Corpuscular HGB Conc 34.4 g/dL (31.0-36.0); Mean Platelet Volume 12.3 fL (7.4-10.4); Monocytes # (Auto) 0.96 K/mcL (0.10-0.90); Monocytes % (Auto) 8.5 % (1.0-12.0); Neutrophils % (Auto) 71.6 % (38.0-78.0); Platelet Count 151 K/mcL (140-440); RBC 4.21 M/mcL (4.63-6.08); Red Cell Distribution Width 13.9 % (11.5-14.5); WBC 11.3 K/mcL (4.5-11.0)
[2021-04-20 07:27] LABS: ALT/SGPT 9 U/L (<40); AST/SGOT 18 U/L (<40); Albumin 3.6 gm/dL (3.2-5.2); Alkaline Phosphatase 83 U/L (39-117); Bilirubin,Direct < 0.2 mg/dL (0-0.3); Bilirubin,Total 0.4 mg/dL (0.1-1.0); Blood Urea Nitrogen 108 mg/dL (8-23); Calcium 8.8 mg/dL (8.6-10.4); Carbon Dioxide 23 mmol/L (22-30); Chloride 106 mmol/L (96-108); Globulin 3.5 gm/dL (2.2-3.7); Glomerular Filtration Rate 24; Glucose 121 mg/dL (70-105); Lactate Dehydrogenase 283 U/L (135-225); Phosphorous 4.1 mg/dL (2.5-4.5); Triglycerides 119 mg/dL (<150); Uric Acid 9.2 mg/dL (2.5-8.0)
[2021-04-20] MEDS: SENNOSIDES 1 TABLET PO SCH ×2 (07:53→21:14)
[2021-04-20] MEDS: OLANZapine 5 MG TABLET PO SCH (07:56)
[2021-04-20] MEDS: DONEPEZIL 10 MG TABLET PO SCH (07:57)
[2021-04-20] MEDS: SERTRALINE 100 MG TABLET PO SCH (07:57)
[2021-04-20] MEDS: INSULIN LISPRO 1 UNIT/0.01 ML UNIT SQ SCH ×4 (07:59→21:15)
[2021-04-20] MEDS: 0.9 % SODIUM CHLORIDE 10 ML SYRINGE IV SCH ×3 (08:02→21:02)
--- NOTE | 2021-04-20 08:27 | Nephrology Progress Note ---
SUBJECTIVE Subjective Patient information: Note initiated : 04/20/21 at 8:25 am Patient: Will Pate 80 y/o M admitted on 04/18/21 for Weakness. Chief Complaint: Weakness Principal diagnosis: Acute kidney injury Pertinent ROS: Hard of hearing Gillis catheter with clear urine Pale Constitutional Vitals: Vital Signs Temp Pulse Resp BP Pulse Ox 97.0 F 79 20 129/53 96 04/20/21 08:00 04/20/21 08:00 04/20/21 08:00 04/20/21 08:00 04/20/21 08:00 Period Temp Pulse Resp BP Sys/Montesinos Pulse Ox Last 24 Hr 97 F-97.5 F 67-81 14-20 100-129/53-68 94-97 Intake and Output 04/19/21 04/20/21 04/20/21 21:59 05:59 13:59 Intake Total 1000 960 Output Total 650 75 Balance 350 885 Weight 189 lb 4 oz Intake & Output: Intake & Output 04/19/21 04/20/21 04/20/21 21:59 05:59 13:59 Intake Total 1000 960 Output Total 650 75 Balance 350 885 Weight 189 lb 4 oz Intake: IV 1000 Sodium Bicarbonate Vial 150 Meq 1000 In Dextrose 5% in Water 850 ml @ 100 mls/hr IV Q10H [facility] Rx#: [id number] Oral 960 Output: Void Amount 550 Stool 100 75 Other: Urine Appearance Uretheral (Gillis) Clear Urine Color Uretheral (Gillis) Pale Stool Color Brown Brown Green Stool Consistency Liquid Liquid # Voids 1 General appearance: cooperative and no acute distress Head Head exam: Present normal inspection Eye Eye exam: Present normal appearance ENT ENT exam: Present mucous membranes moist Respiratory Respiratory exam: Absent respiratory distress Cardiovascular Cardiovascular exam: Present normal rate and rhythm GI/Abdominal GI/Abdominal exam: Present soft; Absent tenderness Extremities Exam Extremities exam: Absent joint swelling or pedal edema Neurological Exam Neurological exam: Present alert and oriented X3 Psychiatric Psychiatric exam: Present normal affect and normal mood Skin Skin exam: Present warm; Absent rash A/P Assessment and plan (1) Acute renal failure with acute tubular necrosis superimposed on stage 3a chronic kidney disease: Assessment and plan: Will Pate is an 80-year-old male with hypertension, diabetes mellitus type 2, chronic kidney disease stage 3a, history of colon cancer s/p resection with colostomy presented to [facility] ED for weakness on 04/18/21. His work up is signifi cant for acute kidney injury. He was recently seen at [facility] ED on 03/20/21 and 03/21/21 for acute kidney injury which responded to IV fluids. He was recommended to see a kidney specialist. Baseline serum creatinine: 1.0-1.5 (eGFR 43-71) in 2020, 2.0 on 03/20/21, 1.3 on 03/21/21. Nephrology consultation was requested for acute kidney injury. Acute kidney injury, likely acute tubular necrosis associated with dehydration on chronic kidney disease stage 3a with initial metabolic acidosis, present on arrival. There is no recent history of IV contrast administration or NSAID use. Intravascular volume depletion likely with history and colostomy and being treated with adequate IV fluid resuscitation. Previous work up: Urinalysis on 03/21/21: Yellow, Clear, pH 6.0, SG 1.015, protein 30, blood 0.03, leukocyte esterase negative. Urine random microalbumin/creatinine on 06/19/18: 78.5 mg/g creatinine. CT Abdomen and Pelvis with contrast on 11/28/2017: Benign appearing cortical and partially exophytic cysts in the kidneys. Urinary bladder is decompressed. Work up: Urinalysis on 04/18/21: Yellow, Clear, pH 5.0, SG 1.015, protein negative, blood trace-lysed, leukocyte esterase negative, urine WBC. Renal US on 04/18/21: Echogenic renal cortex bilaterally. Findings consistent with medical renal disease. No hydronephrosis. Labs on 04/18/21: C3 154.3, C4 36.6, serum free kappa/lambda light chain ra [id number]. HBsAg, anti-HCV Ab, ANCA screen, anti-GBM Ab pending. Progress: Serum creatinine decreased from 3.7 to 2.4 in the past 24 hours. Baseline serum creatinine: 1.0-1.5 (eGFR 43-71) in 2020, 2.0 on 03/20/21, 1.3 on 03/21/21. Urine output: 1,250 ml reported in the past 18 hours. Metabolic acidosis, resolved. Fluid overload. I/O: + 2.7 L Weight: +14 lb No uremic symptoms. Recommendations/Plan: Recommend Lisinopril 20 mg daily and HCTZ 25 mg daily to be resumed at discharge. Anticipate no acute hemodialysis need. Status: Acute (2) Metabolic acidosis: Status: Acute Time Spent With Patient Time: Total time spent is greater than 50% in coordination of care (as documented) at patient's floor/unit and/or counseling patient:
[2021-04-20 09:12] LABS: Kappa Free Light Chains 93.01 mg/L (3.30-19.40); Lambda Free Light Chains 48.07 mg/L (5.71-26.30)
[2021-04-20] MEDS: HEPARIN 5,000 UNIT/ML VIAL SQ SCH ×2 (10:09→21:15)
--- NOTE | 2021-04-20 11:32 | Internal Med Progress Note ---
SUBJECTIVE Subjective Patient information: Note initiated : 04/20/21 at 11:30 am Service Date, if different from initiated Date: [] Patient: iWll Pate 80 y/o M admitted on 04/18/21 for Weakness. Chief Complaint: [] Principal diagnosis: Acute kidney injury Interval history: Mr. Pate is a 80 year old male with a history of hypertension, type 2 diabetes mellitus, chronic kidney disease stage III a, congestive heart failure, colon cancer about 3 years ago status post resection and colostomy placement presented to the emergency department for generalized weakness, fatigue, decreased appetite. This is been progressively worsening for several weeks, the patient was seen at [facility] emergency department in February 2021 and found to have acute kidney injury that responded to IV fluids. Patient was seen by his primary care provider for the aforementioned complaints, no etiology has been found for the patient's symptoms. In the emergency department at [facility] the patient was found to have an acute kidney injury and anion gap metabolic acidosis, BUN was elevated at 206. Additionally, the patient had a mild normocytic anemia, thrombocytopenia with platelets 121, increased globulin of 4.1. TSH was normal. Urinalysis was fairly normal, no evidence of hematuria or pyuria. Chest AP x-ray was interpreted as negative by radiology. The patient was admitted for acute kidney injury work-up and management. Nephrology was consulted in the emergency department for acute kidney injury. 04/19 Renal function improving, metabolic acidosis resolved, nephrology discontinued the bicarbonate IV infusion. Bilateral renal ultrasound negative for hydronephrosis and showed bilateral echogenic renal cortex consistent with medical renal disease, awaiting ARIAN workup labs. 04/20 Improving renal function, has gutierrez for 24 hr urine collection for urine protein electrophoresis. Multiple pending acute kidney injury labs, mild leukocytosis today. Physical exam Head: Atraumatic, normal inspection. Eyes: normal appearance, no scleral icterus. Neck: full ROM Respiratory: no respiratory distress. Cardiovascular: normal rate and rhythm, S1, S2. GI/Abdominal: soft, nontender, no guarding. Extremities: full range of motion, nontender. Neurological: CN II-XII intact, intact motor, intact sensation. Psychiatric: normal mood. Skin: warm, normal color Constitutional Vitals: Vital Signs Temp Pulse Resp BP Pulse Ox 97.0 F 79 20 129/53 96 04/20/21 08:00 04/20/21 08:00 04/20/21 08:00 04/20/21 08:00 04/20/21 08:00 Period Temp Pulse Resp BP Sys/Montesinos Pulse Ox Last 24 Hr 97 F-97.5 F 67-81 14-20 100-129/53-68 94-97 Intake and Output 04/19/21 04/20/21 04/20/21 21:59 05:59 13:59 Intake Total 1000 960 120 Output Total 650 75 Balance 350 885 120 Weight 85.842 kg Intake & Output: Intake & Output 04/19/21 04/20/21 04/20/21 21:59 05:59 13:59 Intake Total 1000 960 120 Output Total 650 75 Balance 350 885 120 Weight 85.842 kg Intake: IV 1000 Sodium Bicarbonate Vial 150 Meq 1000 In Dextrose 5% in Water 850 ml @ 100 mls/hr IV Q10H [facility] Rx#: [id number] Oral 960 120 Output: Void Amount 550 Stool 100 75 Other: Meal Breakfast Percent of Meal Consumed 10% Feeding Ability Assist with Tray Set Up Urine Appearance Uretheral (Gutierrez) Clear Urine Color Uretheral (Gutierrez) Pale Stool Color Brown Brown Green Stool Consistency Liquid Liquid # Voids 1 OBJ DATA Labs CBC & Chem 7: 04/20/21 05:29 04/20/21 05:29 Labs: Abnormal Lab Results 04/20/21 04/20/21 04/19/21 05:29 05:29 15:11 WBC 11.3 H RBC 4.21 L Hgb 12.7 L Hct 36.9 L Plt Count MPV 12.3 H Neut % (Auto) Lymph % (Auto) Lymph # (Auto) [place] # (Auto) 0.96 H Absolute Neutrophils 8.11 H Carbon Dioxide Anion Gap BUN 108 H* Creatinine 2.4 H Glucose 121 H Hemoglobin A1c 8.2 H Uric Acid 9.2 H Phosphorus Lactate Dehydrogenase 283 H Globulin Albumin/Globulin Ratio Thyroxine (T4) Urine Occult Blood Hyaline Casts Urine Mucus Free [place] LC, Quant Free Lambda LC, Quant Free [place]/Lambda Ratio 04/19/21 04/19/21 04/18/21 06:00 06:00 15:37 WBC RBC 3.89 L Hgb 11.7 L Hct 34.4 L Plt Count 113 L MPV 12.0 H Neut % (Auto) Lymph % (Auto) Lymph # (Auto) 1.42 L [place] # (Auto) Absolute Neutrophils Carbon Dioxide Anion Gap BUN 164 H* Creatinine 3.7 H Glucose Hemoglobin A1c Uric Acid 10.6 H Phosphorus 6.1 H* Lactate Dehydrogenase Globulin Albumin/Globulin Ratio 0.9 L Thyroxine (T4) Urine Occult Blood Hyaline Casts Urine Mucus Free [place] LC, Quant 93.01 H Free Lambda LC, Quant 48.07 H Free [place]/Lambda Ratio 1.935 H 04/18/21 04/18/21 04/18/21 10:50 10:03 10:03 WBC RBC 4.39 L Hgb 13.2 L Hct 39.8 L Plt Count 121 L MPV 11.6 H Neut % (Auto) 78.5 H Lymph % (Auto) 12.6 L Lymph # (Auto) 0.90 L [place] # (Auto) Absolute Neutrophils Carbon Dioxide 15 L Anion Gap 19.0 H BUN 206 H* Creatinine 5.2 H* Glucose 168 H Hemoglobin A1c Uric Acid Phosphorus Lactate Dehydrogenase Globulin 4.1 H Albumin/Globulin Ratio Thyroxine (T4) 3.8 L Urine Occult Blood Trace-lysed A Hyaline Casts 13 H Urine Mucus Few A Free [place] LC, Quant Free Lambda LC, Quant Free [place]/Lambda Ratio Meds: Medications Acetaminophen (Acetaminophen 325 Mg Tablet) 650 mg PO Q6HP PRN; Protocol PRN Reason: Per Pain Protocol/Fever > 101 Alprazolam (Alprazolam 0.5 Mg Tablet) 1 mg PO HSP PRN PRN Reason: Anxiety Last Admin: 04/19/21 20:28 Dose: 1 mg Documented by: Atorvastatin Calcium (Atorvastatin 20 Mg Tablet) 20 mg PO [facility] Last Admin: 04/19/21 20:28 Dose: 20 mg Documented by: Dextrose (Dextrose 50% 50 Ml Vial) 0 ml IV UD PRN PRN Reason: Hypoglycemia Diagnostic Test (Pha) (Accu-Chek 1 Each Strip) 1 each FS ACHS [facility] Last Admin: 04/20/21 07:59 Dose: 1 each Documented by: Donepezil HCl (Donepezil 10 Mg Tablet) 5 mg PO QDAY [facility] Last Admin: 04/20/21 07:57 Dose: 5 mg Documented by: Glucose (Dextrose 31 Gm Oral.Susp) 15 gm PO PRN PRN PRN Reason: Hypoglycemia Heparin Sodium (Porcine) (Heparin 5,000 Unit/Ml Vial) 5,000 unit SQ Q12 [facility] Last Admin: 04/20/21 10:09 Dose: 5,000 unit Documented by: Insulin Glargine (Insulin Glargine, Human 1 Unit/0.01 Ml) 20 unit SQ HS [facility] Last Admin: 04/19/21 20:28 Dose: 20 units Documented by: Insulin Human Lispro (Insulin Lispro 1 Unit/0.01 Ml Unit) 0 unit SQ ACHS [facility]; Protocol Last Admin: 04/20/21 07:59 Dose: Not Given Documented by: Olanzapine (Olanzapine 5 Mg Tablet) 10 mg PO DAILY [facility] Last Admin: 04/20/21 07:56 Dose: 10 mg Documented by: Olanzapine (Olanzapine 10 Mg Vial) 5 mg IM Q6HP PRN PRN Reason: Agitation Ondansetron HCl (Ondansetron 4 Mg/2 Ml Vial) 4 mg IV Q6HP PRN PRN Reason: Nausea And Vomiting Senna (Sennosides 1 Tablet) 2 tab PO BID [facility] Last Admin: 04/20/21 07:53 Dose: 2 tab Documented by: Sertraline HCl (Sertraline 100 Mg Tablet) 200 mg PO DAILY [facility] Last Admin: 04/20/21 07:57 Dose: 200 mg Documented by: Sodium Chloride (0.9 % Sodium Chloride 10 Ml Syringe) 10 ml IV Q8 [facility] Last Admin: 04/20/21 08:02 Dose: 10 ml Documented by: A/P Narrative A/P Narrative: Assessment: 80 year old male with a history of hypertension, type 2 diabetes mellitus, chronic kidney disease stage IIIa, colon cancer about 3 years ago status post resection and colostomy placement presented to the emergency department for generalized weakness, fatigue, decreased appetite and found to have acute on chronic kidney disease injury. #Acute on chronic kidney disease stage IIIa injury #Resolved anion gap metabolic acidosis #Generalized weakness and fatigue #Type 2 diabetes mellitus #Hypertension #Normocytic anemia #Thrombocytopenia #Gutierrez catheter #Probable BPH #History of colon cancer status post resection -Reportedly in remission #Status post colostomy for colon cancer #Cognitive impairment Plan -Monitor renal function and urine output. -ARIAN work-up: serum free light chains, SPEP, UPEP, hepatitis B and C screening, C3, C 4, ANCA screen, anti-GBM antibody. -Monitor hemoglobin. -Continue home Atorvastatin, donepezil, zyprexa, sertraline -Reduced dose Lantus HS. -SSI-medium. -Holding home hydrochlorothiazide, lisinopril, metformin, pioglitazone, high dose Lantus. -Renal diabetic diet. -Nephrology following. -PT consult. -Remove gutierrez when able. -DVT prophylaxis: Heparin SQ -CODE STATUS: DNR/DNI -Disposition: TBD Time Spent With Patient Time: Total time spent is greater than 50% in coordination of care (as documented) at patient's floor/unit and/or counseling patient: QUALITY VTE Deep Vein Thrombosis/Pulmonary Embolism Present on Admission: No
[2021-04-20] MEDS ORDERED: ALPRAZolam 0.5 MG TABLET PO PRN (13:01)
[2021-04-20 13:41] LABS: Albumin PEP 3.29 gm/dL (3.10-4.70); Albumin/Globulin Ratio PEP 0.9 RATIO (0.9-1.7); Alpha-1-Globulins 0.18 gm/dL (0.10-0.50); Alpha-2-Globulins 1.17 gm/dL (0.40-1.20); Beta Globulins 1.07 gm/dL (0.60-1.20); Gamma Globulins 1.28 gm/dL (0.50-1.70); Globulin PEP 3.7 gm/dL (2.4-3.6)
[2021-04-20] MEDS: ATORVASTATIN 20 MG TABLET PO SCH (21:14)
[2021-04-20] MEDS: INSULIN GLARGINE, HUMAN 1 UNIT/0.01 ML SQ SCH (21:15)
[2021-04-21] MEDS: 0.9 % SODIUM CHLORIDE 10 ML SYRINGE IV SCH ×2 (06:13→12:06)
[2021-04-21 07:14] LABS: Basophils # (Auto) 0.04 K/mcL (0.00-0.30); Basophils % (Auto) 0.4 % (0.0-2.0); Eosinophils # (Auto) 0.22 K/mcL (0.00-0.70); Eosinophils % (Auto) 2.4 % (0.0-7.0); Hematocrit 35.6 % (40.1-51.0); Hemoglobin 11.9 g/dL (13.7-17.5); Lymphocytes # (Auto) 2.08 K/mcL (1.50-4.80); Lymphocytes % (Auto) 22.4 % (15.5-49.0); Mean Corpuscular HGB Conc 33.4 g/dL (31.0-36.0); Monocytes # (Auto) 0.78 K/mcL (0.10-0.90); Monocytes % (Auto) 8.4 % (1.0-12.0); Neutrophils % (Auto) 66.4 % (38.0-78.0); Platelet Count 109 K/mcL (140-440); RBC 3.91 M/mcL (4.63-6.08); Red Cell Distribution Width 13.7 % (11.5-14.5); WBC 9.3 K/mcL (4.5-11.0)
[2021-04-21] MEDS: INSULIN LISPRO 1 UNIT/0.01 ML UNIT SQ SCH ×2 (07:26→12:06)
[2021-04-21 07:35] LABS: ALT/SGPT 8 U/L (<40); AST/SGOT 17 U/L (<40); Albumin 3.1 gm/dL (3.2-5.2); Albumin/Globulin Ratio 0.9 (1.0-2.3); Alkaline Phosphatase 82 U/L (39-117); Bilirubin,Total 0.4 mg/dL (0.1-1.0); Blood Urea Nitrogen 110 mg/dL (8-23); Calcium 8.8 mg/dL (8.6-10.4); Carbon Dioxide 26 mmol/L (22-30); Chloride 107 mmol/L (96-108); Globulin 3.6 gm/dL (2.2-3.7); Glomerular Filtration Rate 22; Glucose 98 mg/dL (70-105)
--- NOTE | 2021-04-21 07:55 | Nephrology Progress Note ---
SUBJECTIVE Subjective Patient information: Note initiated : 04/21/21 at 7:52 am Patient: Will Pate 80 y/o M admitted on 04/18/21 for Weakness. Chief Complaint: Weakness Principal diagnosis: Acute kidney injury Pertinent ROS: Hard of hearing Weakness Constitutional Vitals: Vital Signs Temp Pulse Resp BP Pulse Ox 97.4 F 65 12 108/59 93 04/21/21 06:01 04/21/21 06:01 04/21/21 06:01 04/21/21 06:01 04/21/21 06:01 Period Temp Pulse Resp BP Sys/Montesinos Pulse Ox Last 24 Hr 96.8 F-98.9 F 65-101 12-20 96-129/50-66 93-98 Intake and Output 04/20/21 04/21/21 04/21/21 21:59 05:59 13:59 Intake Total 400 Output Total 750 575 Balance -750 -175 Weight 188 lb 6.4 oz Intake & Output: Intake & Output 04/20/21 04/21/21 04/21/21 21:59 05:59 13:59 Intake Total 400 Output Total 750 575 Balance -750 -175 Weight 188 lb 6.4 oz Intake: Oral 400 Output: Urine Catheter Amount 575 Void Amount 500 Stool 250 Other: Meal Dinner Percent of Meal Consumed 100% Urine Appearance Clear Urine Color Bright Yellow Uretheral (Gillis) Bright Yellow Stool Color Brown Stool Consistency Soft Liquid General appearance: cooperative and no acute distress Head Head exam: Present normal inspection Eye Eye exam: Present normal appearance ENT ENT exam: Present mucous membranes moist Respiratory Respiratory exam: Absent respiratory distress Cardiovascular Cardiovascular exam: Present normal rate and rhythm GI/Abdominal GI/Abdominal exam: Present soft; Absent tenderness Extremities Exam Extremities exam: Absent joint swelling or pedal edema Neurological Exam Neurological exam: Present alert Psychiatric Psychiatric exam: Present normal affect and normal mood Skin Skin exam: Present warm; Absent rash A/P Assessment and plan (1) Acute renal failure with acute tubular necrosis superimposed on stage 3a chronic kidney disease: Assessment and plan: Will Pate is an 80-year-old male with hypertension, diabetes mellitus type 2, chronic kidney disease stage 3a, history of colon cancer s/p resection with colostomy presented to [facility] ED for weakness on 04/18/21. His work up is significant for acute kidney injury. He was recently seen at [facility] ED on 03/20/21 and 03/21/21 for acute kidney injury which responded to IV fluids. He was recommended to see a kidney specialist. Baseline serum creatinine: 1.0-1.5 (eGFR 43-71) in 2020, 2.0 on 03/20/21, 1.3 on 03/21/21. Nephrology consultation was requested for acute kidney injury. Acute kidney injury, likely acute tubular necrosis associated with dehydration on chronic kidney disease stage 3a with initial metabolic acidosis, present on arrival. There is no recent history of IV contrast administration or NSAID use. Intravascular volume depletion likely with history and colostomy and being treated with adequate IV fluid resuscitation. Previous work up: Urinalysis on 03/21/21: Yellow, Clear, pH 6.0, SG 1.015, protein 30, blood 0.03, leukocyte esterase negative. Urine random microalbumin/creatinine on 06/19/18: 78.5 mg/g creatinine. CT Abdomen and Pelvis with contrast on 11/28/2017: Benign appearing cortical and partially exophytic cysts in the kidneys. Urinary bladder is decompressed. Work up: Urinalysis on 04/18/21: Yellow, Clear, pH 5.0, SG 1.015, protein negative, blood trace-lysed, leukocyte esterase negative, urine WBC. Renal US on 04/18/21: Echogenic renal cortex bilaterally. Findings consistent with medical renal disease. No hydronephrosis. Labs on 04/18/21: C3 154.3, C4 36.6, serum free kappa/lambda light chain ratio 1.935 (0.3-3.0 is low risk with renal failure). HBsAg, anti-HCV Ab, ANCA screen, anti-GBM Ab pending. Progress: Serum creatinine increased from 2.4 to 2.6 (eGFR 22) in the past 24 hours. Baseline serum creatinine: 1.0-1.5 (eGFR 43-71) in 2020, 2.0 on 03/20/21, 1.3 on 03/21/21. Urine output: 500 ml reported in the past 18 hours. Metabolic acidosis, resolved. Fluid overload. I/O: + 1.9 L Weight: +13 lb No uremic symptoms. Recommendations/Plan: Recommend Lisinopril 20 mg daily and HCTZ 25 mg daily to be resumed at discharge. Anticipate no acute hemodialysis need. Outpatient nephrology follow up. Status: Acute (2) Metabolic acidosis: Status: Acute Time Spent With Patient Time: Total time spent is greater than 50% in coordination of care (as documented) at patient's floor/unit and/or counseling patient:
[2021-04-21] MEDS ORDERED: CARBAMIDE PEROXIDE OTIC SOL 15ML AU ONE (10:30)
[2021-04-21] MEDS: SENNOSIDES 1 TABLET PO SCH (10:51)
[2021-04-21] MEDS: OLANZapine 5 MG TABLET PO SCH (10:54)
[2021-04-21] MEDS: SERTRALINE 100 MG TABLET PO SCH (10:54)
[2021-04-21] MEDS: DONEPEZIL 10 MG TABLET PO SCH (10:55)
[2021-04-21] MEDS: HEPARIN 5,000 UNIT/ML VIAL SQ SCH (10:56)
--- NOTE | 2021-04-21 12:06 | Discharge Summary ---
Discharge Provider Provider Patient information: Note initiated : 04/21/21 at 12:03 pm Service Date, if different from initiated Date: [] Patient: Will Pate 80 y/o M admitted on 04/18/21 for Weakness. Chief Complaint: [] Date of admission: 04/18/21 17:49 Discharge date: 04/21/21 Primary care physician: Devon Lemos DO Attending physician on admission: Marv Perales Consults: 04/18/21 Consult to Physician [CONS] Stat Comment: Consulting Provider: Marv Perales Reason For Exam: Physician to Consult Consult to Physician [CONS] Stat Comment: Consulting Provider: Deb Suarez Reason For Exam: Physician to Consult Attending physician on discharge: Chi Surya Pui Discharge Meds Discharge Medications Home Medications alprazolam 1 mg tablet 1 tab PO HS PRN 04/18/21 [History Confirmed 04/18/21 Last Taken 04/17/21] atorvastatin 20 mg tablet 1 tab PO HS 04/18/21 [History Confirmed 04/18/21 Last Taken 04/17/21] donepezil 5 mg tablet 1 tab PO QDAY 04/18/21 [History Confirmed 04/18/21 Last Taken 04/17/21] hydrochlorothiazide 25 mg tablet 1 tab PO BID 04/18/21 [History Confirmed 04/18/21 Last Taken 04/17/21] insulin glargine 100 unit/mL (3 mL) subcutaneous pen (Lantus Solostar U-100 Insulin) 62 unit SUBCUT QDAY 04/18/21 [History Confirmed 04/18/21 Last Taken Unknown] metformin 1,000 mg tablet 1,000 mg PO BID 04/18/21 [History Confirmed 04/18/21 Last Taken 04/17/21] olanzapine 10 mg tablet 1 tab PO QDAY 04/18/21 [History Confirmed 04/18/21 Last Taken 04/17/21] pioglitazone 15 mg tablet 2 tab PO DAILY 04/18/21 [History Confirmed 04/18/21 Last Taken 04/17/21] potassium chloride 10 mEq tablet,extended release 1 tab PO QDAY 04/18/21 [History Confirmed 04/18/21 Last Taken 04/17/21] sertraline 100 mg tablet 200 mg PO DAILY 04/18/21 [History Confirmed 04/18/21 Last Taken 04/17/21] lisinopril 40 mg tablet 20 mg PO DAILY #30 tab 04/21/21 [Rx Last Taken Unknown] COURSE Hospital Course Hospital course: Mr. Pate is a 80 year old male with a history of hypertension, type 2 diabetes mellitus, chronic kidney disease stage III a, congestive heart failure, colon cancer about 3 years ago status post resection and colostomy placement presented to the emergency department for generalized weakness, fatigue, decreased appetite. This is been progressively worsening for several weeks, the patient was seen at [facility] emergency department in February 2021 and found to have acute kidney injury that responded to IV fluids. Patient was seen by his primary care provider for the aforementioned complaints, no etiology has been found for the patient's symptoms. In the emergency department at [facility] the patient was found to have an acute kidney injury and anion gap metabolic acidosis, BUN was elevated at 206. Additionally, the patient had a mild normocytic anemia, thrombocytopenia with platelets 121, increased globulin of 4.1. TSH was normal. Urinalysis was fairly normal, no evidence of hematuria or pyuria. Chest AP x-ray was interpreted as negative by radiology. The patient was admitted for acute kidney injury work-up and management. Nephrology was consulted in the emergency department for acute kidney injury. 04/19 Renal function improving, metabolic acidosis resolved, nephrology discontinued the bicarbonate IV infusion. Bilateral renal ultrasound negative for hydronephrosis and showed bilateral echogenic renal cortex consistent with medical renal disease, awaiting ARIAN workup labs. 04/20 Improving renal function, has gutierrez for 24 hr urine collection for urine protein electrophoresis. Multiple pending acute kidney injury labs, mild leukocytosis today. 04/21: Reached clinical stability, decided to discharged with home health today. f/u PCP and Dr. Suarez, respectively. Rx sent to pharmacy. All questions answered prior to patient being physically discharged. Discharge diagnosis: acute kidney injury Time Spent with Patient Time attestation: Total time spent providing and/or coordinating discharge services: Time spent: Less than 30 minutes EXAM Constitutional Vitals: Temp Pulse Resp BP Pulse Ox 36.3 C 60 16 109/63 91 04/21/21 07:58 04/21/21 07:58 04/21/21 07:58 04/21/21 07:58 04/21/21 07:58 General appearance: cooperative and no acute distress Head Head exam: Present atraumatic and normocephalic Eye Eye exam: Present EOMI and PERRL ENT ENT exam: Present mucous membranes moist, normal exam and normal external ear exam Neck Neck exam: Present normal inspection; Absent lymphadenopathy, tenderness or thyromegaly Respiratory Respiratory exam: Absent accessory muscle use, respiratory distress or wheezes Cardiovascular Cardiovascular exam: Present normal rate and rhythm; Absent JVD GI/Abdominal GI/Abdominal exam: Present normal bowel sounds and soft; Absent organomegaly or tenderness Rectal Rectal exam: Present deferred Extremities Exam Extremities exam: Present full ROM, normal capillary refill and normal inspection; Absent tenderness Neurological Exam Neurological exam: Present alert, CN II-XII intact and oriented X3; Absent motor sensory deficit Psychiatric Psychiatric exam: Present normal affect and normal mood; Absent anxious or depressed Skin Skin exam: Present dry and intact Discharge Data Data Completed and Pending Labs on day of discharge: Labs from last 24 hours 04/21/21 04/21/21 04/20/21 06:03 06:03 17:00 WBC 9.3 RBC 3.91 L Hgb 11.9 L Hct 35.6 L MCV 91.0 MCH 30.4 MCHC 33.4 RDW 13.7 Plt Count 109 L MPV 12.0 H Neut % (Auto) 66.4 Lymph % (Auto) 22.4 [place] % (Auto) 8.4 Eos % (Auto) 2.4 Baso % (Auto) 0.4 Lymph # (Auto) 2.08 [place] # (Auto) 0.78 Eos # (Auto) 0.22 Baso # (Auto) 0.04 Absolute Neutrophils 6.17 Sodium 143 Potassium 3.7 Chloride 107 Carbon Dioxide 26 Anion Gap 10.0 BUN 110 H* Creatinine 2.6 H GFR Calculation 22 Glucose 98 Calcium 8.8 Total Bilirubin 0.4 AST 17 ALT 8 Alkaline Phosphatase 82 Total Protein 6.7 Total Protein (PEP) Albumin 3.1 L Albumin (PEP) Globulin 3.6 Globulin (PEP) Albumin/Globulin Ratio 0.9 L Albumin/Globulin (PEP) Dvfqz-6-Yydczhzho Xhocv-3-Lqvqptulq Beta Globulins Gamma Globulins PEP Interpretation U [place] Prot/Creat Ratio Pending Ur Creatinine 24 Hour Pending Ur Total Protein 24 Hr Pending Protein/Creat Ratio 24h Pending Urine Albumin (%) Pending U [place]-8-Rlhbpmyp (%) Pending U Zxqzh-3-Tkftgxpz (%) Pending U Beta Globulin (%) Pending U Gamma Globulin (%) Pending Urine PEP Interpret Pending 04/19/21 15:11 WBC RBC Hgb Hct MCV MCH MCHC RDW Plt Count MPV Neut % (Auto) Lymph % (Auto) [place] % (Auto) Eos % (Auto) Baso % (Auto) Lymph # (Auto) [place] # (Auto) Eos # (Auto) Baso # (Auto) Absolute Neutrophils Sodium Potassium Chloride Carbon Dioxide Anion Gap BUN Creatinine GFR Calculation Glucose Calcium Total Bilirubin AST ALT Alkaline Phosphatase Total Protein Total Protein (PEP) 7.0 Albumin Albumin (PEP) 3.29 Globulin Globulin (PEP) 3.7 H Albumin/Globulin Ratio Albumin/Globulin (PEP) 0.9 Vhhit-5-Ljpbhpdok 0.18 Zfgpy-7-Tepwkzgss 1.17 Beta Globulins 1.07 Gamma Globulins 1.28 PEP Interpretation See comment U [place] Prot/Creat Ratio Ur Creatinine 24 Hour Ur Total Protein 24 Hr Protein/Creat Ratio 24h Urine Albumin (%) U Nwtnw-8-Nuchhsvg (%) U [place]-9-Wphjyfio (%) U Beta Globulin (%) U Gamma Globulin (%) Urine PEP Interpret Preliminary micro results at discharge 04/18/21 10:12 Blood Culture - Preliminary Blood 04/18/21 10:03 Blood Culture - Preliminary Blood Discharge Plan Patient/Caregiver Discharge Instructions Activity: increase activity as tolerated Diet: Renal Prescriptions: Continued pioglitazone 15 mg tablet 2 tab PO DAILY 0RF atorvastatin 20 mg tablet 1 tab PO HS 0RF donepezil 5 mg tablet 1 tab PO QDAY 0RF alprazolam 1 mg tablet 1 tab PO HS PRN (Reason: Anxiety) 0RF sertraline 100 mg tablet 200 mg PO DAILY 0RF Label Comments: [NO ORIGINAL SIG] olanzapine 10 mg tablet 1 tab PO QDAY 0RF potassium chloride 10 mEq tablet extended release 1 tab PO QDAY 0RF metformin 1,000 mg Tablet 1,000 mg PO BID 0RF hydrochlorothiazide 25 mg tablet 1 tab PO BID 0RF Lantus Solostar U-100 Insulin 100 unit/mL (3 mL) insulin pen 62 unit subcut QDAY 0RF Changed lisinopril 40 mg tablet 20 mg PO DAILY Qty: 30 0RF Follow Up Plan Follow up with: Deb Suarez MD [Physician] - (2 week) Devon Lemos DO [Primary Care Provider] - Patient Disposition: Home Health Service Prognosis: Fair Rehab Potential: Good I certify that the patient requires SNF services: No Overall status at discharge: patient is back to baseline Discharge Orders: Discharge Order (Routine); Ordered 04/21/21 Ordered By: Ja MURPHY VTE Deep Vein Thrombosis/Pulmonary Embolism Present on Admission: No
[2021-04-23 12:43] LABS: Anti-Glomerular Basement Memb <1.0 AI (<1.0)
[2021-04-23 20:47] LABS: Albumin 54 %; Alpha-1-Globulin 6 %; Alpha-2-Globulin 8 %; Gamma Globulin 16 %; Prot/Creatinine Ratio 232 mg/g creat (< OR = 114)
[2021-04-30 22:01] LABS: Myeloperoxidase Antibody <1.0 AI (<1.0)
== END 2021-04-21 16:10 | disposition home health service (06) | DRG 683 ==
LOC: ED 09:28 → MEDSUR 17:49
PROVIDERS: ADMIT Internal Medicine; ATTEND Internal Medicine